=== PATIENT | male | born 1990 | race African-American/Black ===

== ENCOUNTER 2016-04-19 10:50 | Emergency (ER) | payer SELFPAY ==
[~2016-04-19] VITALS: Ht 180.3 cm; Wt 68.2 kg
[2016-04-19 10:51] VITALS: BP 133/77; PULSE 82; RESP 16; TEMP 97.7; O2SAT 96
--- NOTE | 2016-04-19 11:44 | PD ---
HPI Chief Complaint: Complaint Time Seen by Provider: 11:44 Travel History International Travel<30 days: No Contact w/Intl Traveler<30days: No Traveled to known affect area: No History of Present Illness HPI 25-year-old male with no significant medical history presents to the emergency department for evaluation of penile discharge noted this morning. Denies any significant pain with urination. No abdominal pain. No fever or chills. Patient has had unprotected intercourse in the last 3 months. Denies any other symptoms to report. PFSH Past Medical History Medical History: Denies Significant Hx Social History Alcohol Use: No Tobacco Use: No Substance Use: No Allergies-Medications (Allergen,Severity, Reaction): Coded Allergies: No Known Allergies (Unverified , 04/19/16) Review of Systems Except as stated in HPI: all other systems reviewed are Neg Physical Exam Narrative GENERAL: Well-nourished, well-developed male patient in no acute distress SKIN: Warm and dry. HEAD: Normocephalic. EYES: No scleral icterus. No injection or drainage. NECK: Supple, trachea midline. No JVD or lymphadenopathy. CARDIOVASCULAR: Regular rate and rhythm without murmurs, gallops, or rubs. RESPIRATORY: Breath sounds equal bilaterally. No accessory muscle use. GASTROINTESTINAL: Abdomen soft, non-tender, nondistended. MUSCULOSKELETAL: No cyanosis, or edema. BACK: Nontender without obvious deformity. No CVA tenderness. Data Data Last Documented VS Vital Signs Date Time Temp Pulse Resp B/P Pulse Ox O2 Delivery O2 Flow Rate FiO2 04/19/16 10:51 97.7 82 16 133/77 96 Room Air Orders Urinalysis - C+S If Indicated (04/19/16 11:48) Gc And Chlamydia Pcr (04/19/16 11:48) Azithromycin (Zithromax) (04/20/16 09:00) Ceftriaxone Inj (Rocephin Inj) (04/19/16 12:00) Azithromycin (Zithromax) (04/19/16 12:30) Urine Culture (04/19/16 12:00) Labs Laboratory Tests Test 04/19/16 12:00 Urine Color YELLOW Urine Turbidity CLEAR Urine pH 6.0 Urine Specific [place] 1.020 Urine Protein NEG mg/dL Urine Glucose (UA) NEG mg/dL Urine Ketones NEG mg/dL Urine Occult Blood NEG Urine Nitrite NEG Urine Bilirubin NEG Urine Urobilinogen LESS THAN 2.0 MG/DL Urine Leukocyte Esterase LARGE Urine RBC 4 /hpf Urine WBC 63 /hpf Urine Bacteria OCC /hpf Urine Mucus FEW /lpf Microscopic Urinalysis Comment CULTURE INDICATED Chlamydia trachomatis DNA DETECTED (PCR) Neisseria gonorrhoeae DNA DETECTED (PCR) MDM Medical Decision Making Medical Screen Exam Complete: Yes Emergency Medical Condition: Yes Medical Record Reviewed: Yes Differential Diagnosis Cystitis versus STD versus urethritis Narrative Course 25-year-old male presents to emergency department for evaluation of penile discharge. Patient is treated empirically. Urinalysis is sent for evaluation. Patient is aware that he will receive a letter regarding results. He agrees to return immediately with any acute worsening symptoms. Diagnosis Primary Impression: Penile discharge Additional Impression: Exposure to STD Referrals: [facility] Dept. Patient Instructions: General Instructions, Safe Sex (ED) Additional Instructions: It is important that you utilize condom prophylaxis Follow-up with the health care department for a more broad testing of STDs. Return immediately to the emergency department with any acute worsening symptoms Med/Other Pt SpecificInfo: No Change to Meds Disposition: 01 DISCHARGE HOME Condition: Stable GregoriaMckenzie ZIMMERMAN Apr 19, 2016 11:44
[2016-04-19] MEDS ORDERED: cefTRIAXone 250 MG VIAL IM ONE (12:00)
[2016-04-19] MEDS ORDERED: AZITHROMYCIN 250 MG TAB PO ONE (12:30)
[2016-04-19 12:31] LABS: BACTERIA, URINE OCC /hpf; BLOOD, URINE NEG (NEG); COMMENT (UR) CULTURE INDICATED; CULTURE IF INDICATED CULTURE INDICATED; GLUCOSE,URINE NEG (NEG); KETONE, URINE NEG (NEG); MUCUS URINE FEW /lpf (OCC); NITRITE,URINE NEG (NEG); URINE COLOR YELLOW (YELLW/STRAW)
[2016-04-19 15:22] LABS: CHLAMYDIA PCR DETECTED (NOT DETECT); NEISSERIA PCR DETECTED (NOT DETECT)
[2016-04-20] MEDS ORDERED: AZITHROMYCIN 250 MG TAB PO SCH (09:00)
== END 2016-04-19 12:47 | disposition home or self-care (01) ==
LOC: NEPB 10:50
DX: R36.9 Urethral discharge, unspecified (principal); Z20.2 Contact with and (suspected) exposure to infections with a predominantly sexual mode of transmission
CPT/HCPCS: 81001; 87086; 87491; 87591; 96372; 99283; J0696